=== PATIENT | male | born 1950 | race Caucasian/White ===

== ENCOUNTER → 2023-11-25 | Outpatient (CLI) | payer MEDICARE, SELFPAY ==
--- NOTE | 2023-11-25 08:25 | MRI_ITS ---
HISTORY: Right leg pain x 3 months. TECHNIQUE: Multiplanar and multisequence MR images of the lumbar spine were obtained without intravenous contrast. 166 images. COMPARISON: None. FINDINGS: VERTEBRAE: Vertebral body heights maintained. Mild degenerative endplate changes of L1-2, L4-5, and L5-S1. No other significant bone marrow signal abnormality. Bilateral L5 spondylolysis. ALIGNMENT: 3 mm L5-S1 anterolisthesis. CONUS: Normal morphology and position of the conus medullaris at T11-12. INTERVERTEBRAL DISCS: T12-L1: Very mild disc bulge and facet arthropathy without significant central canal stenosis or foraminal narrowing. L1-2: Mild disc bulge and facet arthropathy with minimal narrowing of the thecal sac and mild bilateral foraminal narrowing. L2-3: Mild disc bulge and moderate facet arthropathy superimposed on a developmentally narrow spinal canal resulting in mild central canal stenosis and right greater than left foraminal narrowing. L3-4: Mild disc bulge and moderate facet arthropathy superimposed on a developmentally narrow spinal canal resulting in mild central canal stenosis, moderate left, and mild right foraminal narrowing. L4-5: 6 x 9 mm right paracentral disc extrusion with inferior migration extending into the right lateral recess resulting in right L5 nerve root impingement in combination with facet arthropathy with minimal narrowing of the thecal sac and moderate bilateral foraminal narrowing. L5-S1: Mild disc bulge with facet arthropathy superimposed on the mild listhesis resulting in minimal narrowing of the thecal sac and moderate bilateral foraminal narrowing with bilateral L5 nerve root abutment. SOFT TISSUES: No paraspinal fluid collection. MRI/Spine Lumbar (Routine) IMPRESSION: Multilevel degenerative disc disease. Right paracentral disc extrusion of L4-5 resulting in right nerve root impingement and moderate bilateral foraminal narrowing. L5 spondylolysis with grade 1 spondylolisthesis and mild spondylosis resulting in mild bilateral foraminal narrowing with bilateral nerve root abutment. Electronically Signed: Amara Menjivar MD at 12:16 EDT ,
== END | disposition home or self-care (01) ==
PROVIDERS: Referring Provider Orthopaedic Surgery; Visit Provider Orthopaedic Surgery
DX: M47.816 Spondylosis without myelopathy or radiculopathy, lumbar region (principal)
CPT/HCPCS: 72148